=== PATIENT | male | born 1955 | race African-American/Black ===

== ENCOUNTER 2024-04-13 13:48 | Inpatient (IN) | payer MEDICARE, OTHER, SELFPAY ==
[2024-04-13] VITALS (69 sets, daily range): BP systolic 123–215; BP diastolic 70–140; BMI 30.5; BMI 29.8
--- NOTE | 2024-04-13 12:22 | CON.NEURO ---
Neuro Assessment/Plan
Assessment
IMPRESSIONS/RECOMMENDATIONS:
Abrupt change in speech, most likely secondary to acute ischemic stroke. Differential diagnosis includes hypertensive encephalopathy. This diagnosis is slightly less likely based on improvement of the patient's blood pressure not improving the
patient's symptoms.
Plan
Recommendations:
� administer IV Tenecteplase (TNK) per protocol urgently while keeping patient's blood pressure to a goal of systolic less than 185 and diastolic less than 110 mmHg during infusion of TNK
� place the patient in medical ICU
� goal blood pressure over the next 24 hours would be less than 180/105 mmHg
� check MRI of the brain within 22-32 hours of TNK without contrast for localization of the stroke
� hold all antiplatelets, OAC meds, DOAC meds, heparinoids for next 24 hours
� check lipid panel and hemoglobin A1c
� start atorvastatin 80 mg at bedtime when patient is able to take PO, if LDL is greater than 70
� goal blood glucose levels for patient would be less than 180 mg/dL
� Speech, PT, OT evaluations needed
� DVT prophylaxis with sequential compression devices over next 24 hours, can be started on Enoxaparin subcutaneous for DVT prophylaxis beginning 24 hours after TNK provision.
� medical educational materials will be provided
Total Critical Care Time= 60 minutes.
The neurological system is affected and the action required by me to prevent further deterioration or potential was control over the item listed first in the Impressions and Recommendations section of this note.
I was present and personally examined the patient. I discussed patient care with other professional health care providers.
We will follow. Thank you.
Consultation
Order
Date of Consultation: 04/13/24
Requesting Provider: Emergency department physician
Reason for Consult: Aphasia
Subjective/Objective
Subjective Data
Date of Service: April 13, 2024
Right-handed
Patient was in his usual state of health while at his place of latter-day when he had sudden onset of aphasia. Patient not had experience with this disorder in the past. There were no known modifying factors. Patient no additional symptomatology at
that time. He immediately presented to this hospital's emergency department for further evaluation and treatment.
Objective Data
Vital Signs
Pulse BP Pulse Ox
98 208/105 98
04/13/24 12:16 04/13/24 12:16 04/13/24 12:16
Patient Allergies
No Known Allergies Allergy (Unverified 04/13/24 12:20)
CVA Assessment
Onset of Stroke Symptoms
Onset of symptoms known: Yes
Date of onset of symptoms: 04/13/24
Time of onset of symptoms: 11:30
Time pt last seen normal is known: Yes
Date last time pt seen normal: 04/13/24
Time last time pt seen normal: 11:30
NIH Stroke Score
Level of Consciousness: 0 - Alert
LOC Questions: 0-Answers both correctly
LOC Commands: 0-Performs both correctly
Best Horizontal Gaze: 0-Normal
Visual Amaro: 0=Normal, no visual loss
Facial Palsy: 0=Normal, symmetrical
Motor - Right Arm: 0=No drift 10 seconds
Motor - Left Arm: 0=No drift 10 seconds
Motor - Right Le-No drift 5 seconds
Motor - Left Le-No drift 5 seconds
Limb Ataxia: 0-Absent
Sensation: 0-Normal
Best Language: 0-No aphasia
Dysarthria: 2-Severe slurring
Extinction and Inattention: 0-No abnormality
Total Score:: 2
Tenecteplase Contraindications
Inclusion and Exclusion criteria reviewed: Yes
IAT Contraindications: Imaging doesn't show large vessel occlusion as cause of stroke
Review of Systems
-
History Source: Patient
All other systems: Reviewed and negative
EENT: Negative Swallowing Difficulty
Respiratory: Negative Trouble Breathing
Cardiac: Negative Chest Pain
Musculoskeletal: Negative Back Pain or Neck Pain
Neuro: Negative Dizzy or Headache
Physical Exam
-
General: No Apparent Distress and Appears Stated Age
Eyes: OU Absent Papilledema, Round OU, Gillespie Conjunctivae and No Ptosis
HEENT: Anicteric and Moist Mucous Membranes
Neck: Full Range of Motion
Respiratory: No Dyspnea
Cardiac: No JVD
GI: Non-distended
Skin: Unremarkable
Extremities: No Clubbing, No Cyanosis and No Edema
Psych: Intact Judgement/Insight
Extended Neurological Exam
Mood & Affect: Mood Unremarkable and Affect Unremarkable
Attention Span & Concentration: Awake, Alert, Interactive and No Difficulty with 2 Step Request
Memory: Unremarkable
Tremor: Hand Tremor Absent and Head Tremor Absent
Speech: Quantity Unremarkable and Other (Thick)
Cranial Nerve II: Left Eye: Pupillary Reactivity Unremarkable, Pupillary Size Unremarkable and Visual Amaro Intact
Cranial Nerve II: Right Eye: Pupillary Reactivity Unremarkable, Pupillary Size Unremarkable and Visual Amaro Intact
Cranial Nerves III, IV, : Extraocular Movement: Extraocular Movement Full in all Directions
Cranial Nerve VII: Facial Symmetry: Normal Facial Symmetry
Cranial Nerve VIII: Hearing: Unremarkable Hearing to Normal Conversational Volume
Cranial Nerves IX, X: Palate Movement: Palate Elevation Symmetric
Cranial Nerve XI: Shoulder Shrug: Unremarkable
Cranial Nerve XII: Tongue Protusion: Midline
Muscle Strength, Overall: Full Throughout
Muscle Bulk & Tone: Bulk Unremarkable and Tone Unremarkable
Pronator Drift: No Drift in Upper Extremities
Deep Tendon Reflexes: Unremarkable Throughout
Touch Sensation: Unremarkable
Coordination: Rbnfoi-yjhq-bxggvr Testing Unremarkable
Babinski Sign: Absent Bilaterally
Data Reviewed
-
CT-A: Report Reviewed
CT Head: Report Reviewed
Labs: Ordered and Report Reviewed
Lipid Profile: Ordered
Reviewed with: Physician, Nurse and Patient
Old Records: Summarized
Medications
-
Home Medications
�Medication �Instructions �Recorded
No Meds [No Current Medications] 04/13/24
Past History
Past History
ED Past Medical History: HTN
ED Past Surgical History: None
Social History
Tobacco: Non-smoker
Alcohol: None
Family History
Family History: Other (reviewed and non-contributory)
[2024-04-13] MEDS: TRANDATE 10 MG IV ×4 (12:36→18:34)
[2024-04-13 12:39] LABS: Glucose - Point of Care 102 mg/dl (70-99)
[2024-04-13 12:49] LABS: % Basophils 0.7 % (0-2); % Eosinophils 1.8 % (0-6); % Immature Granulocytes 0.3 % (0-0.5); % Lymphocytes 28.3 % (20.5-51.1); % Neutrophils 55.9 % (42.2-75.2); Absolute Basophils 0.1 10^3/uL (0-0.2); Absolute Eosinophils 0.1 10^3/uL (0-0.7); Absolute Lymphocytes 1.9 10^3/uL (1.2-3.4); Absolute Monocytes 0.9 10^3/uL (0.1-0.6); Absolute Neutrophils 3.8 10^3/uL (1.4-6.5); Hematocrit 37.7 % (39.0-52.0); Hemoglobin 13.3 g/dL (13.0-18.0); Mean Corp Hgb Conc. 35.3 g/dL (33.0-37.0); Mean Corpuscular Hgb 31.9 pg (27.0-31.0); Mean Corpuscular Volume 90.4 fL (80.0-94.0); Mean Platelet Volume 9.6 fL (7.4-10.4); Nucleated Red Blood Cells % 0 % (-); Platelet Count 227 10^3/uL (130-400); Red Blood Cell Count 4.17 10^6/uL (4.70-6.10); Red Cell Dist. Width 13.6 % (11.5-14.5); White Blood Cell Count 6.8 10^3/uL (4.8-10.8)
[2024-04-13] MEDS: CARDENE 200 IV (12:59)
[2024-04-13] MEDS: TNKASE 4.6 MG IV (13:03)
[2024-04-13 13:04] LABS: INR 1.07; PT 13.7 Sec (11.4-14.6)
--- NOTE | 2024-04-13 13:12 | ED.CVA ---
History of Present Illness
General
Chief Complaint: CVA/TIA Symptoms
Time Seen by Provider: 04/13/24 12:12
Onset of Stroke Symptoms
Onset of symptoms known: Yes
Date of onset of symptoms: 04/13/24
History of Present Illness
History of Present Illness:
68-year-old male with history of hypertension, however untreated for the past 2 years, presenting to the emergency department for strokelike symptoms. Patient prehospital alert. Patient was working at his [employer]ism. 30 minutes prior to arrival, he
was noted to have difficulty speaking, slurred speech and aphasia by a fellow [employer] member. Dliyk-ba-bxzx glucose noted to be normal and route. On arrival, patient does have a speech deficit. Admits to not taking any blood pressure medication
for the past 2 years, hypertensive. Denies weakness or numbness to his extremities. Denies chest pain or difficulty breathing. Denies headache or visual changes. Denies additional acute medical complaints
Past History
Past History
ED Past Medical History: HTN
ED Past Surgical History: None
Social History
Tobacco: Non-smoker
Alcohol: None
Family History
Family History: Other (reviewed and non-contributory)
Phy Exam
Physical Exam
Physical Exam:
General: Well-appearing, no clinical signs of dehydration, nontoxic and in no acute distress
HEENT: protecting airway
Neck: appears supple
CV: Normal heart rate, regular rhythm, no evidence of cyanosis
Resp: No accessory muscle use, no increased work of breathing, lungs clear to auscultation bilaterally
Abd: Soft and non-distended, no tenderness to palpation, normal bowel sounds
Extremities: No deformities, no swelling, no erythema, pulses and sensation intact
Neuro: Slight expressive aphasia with slurring. Otherwise no focal neurologic deficits.
: deferred
Rectal: deferred
Psych: Normal affect
Skin: Intact
NIH Stroke Score
Level of Consciousness: 0 - Alert
LOC questions: 0-Answers both correctly
LOC Commands: 0-Performs both correctly
Best Gaze: 0-Normal
Visual Amaro: 0=Normal, no visual loss
Facial palsy: 0=Normal, symmetrical
Motor - Right Arm: 0=No drift 10 seconds
Motor - Left Arm: 0=No drift 10 seconds
Motor - Right Le-No drift 5 seconds
Motor - Left Le-No drift 5 seconds
Limb Ataxia: 0-Absent
Sensation: 0-Normal
Best Language: 1-Mild aphasia
Dysarthria: 1-Mild slurring
Extinction and Inattention: 0-No abnormality
Total Score:: 2
Course
Orders/Labs/Results
Orders:
Orders
04/13/24 12:12
CT Head W/o Cont STROKE ALERT Urgent
Comment:
Reason For Exam: expresive aphasia
Bedside Glucose- Treatment ONCE
04/13/24 12:13
Electrocardiogram (*1) Stat
Reason for Study: Other
Other Reason for Exam: neuro symptoms
EKG- Treatment ONCE
04/13/24 12:21
CT Head & Neck Angio W/wo IV Urgent
Comment:
Reason For Exam: stenosis
04/13/24 12:33
Labetalol HCl [Trandate] 5 mg IV NOW STA
04/13/24 12:36
Labetalol HCl [Trandate] 10 mg IV NOW STA
04/13/24 12:38
Type+Screen Urgent
Complete Blood Count/With Diff Urgent
Tenecteplase [Tnkase] 23 mg Syringe [Syringe Non-Pump] 0 ml IV NOW
Provider explained risk/benefits to patient &/or caregiver?: Yes
Blood pressure: 208/105
04/13/24 12:39
Basic Metabolic Panel Urgent
PTT Urgent
Prothrombin Time Urgent
Troponin I Q6H
04/13/24 12:42
Labetalol HCl [Trandate] 20 mg .ROUTE .STK-MED ONE
04/13/24 12:43
Labetalol HCl [Trandate] 10 mg IV NOW STA
04/13/24 12:48
Labetalol HCl [Trandate] 10 mg IV NOW STA
04/13/24 12:53
Nicardipine 40 mg/200 ml [Cardene] 40 mg in 200 ml .ROUTE .STK-MED
04/13/24 13:00
Nicardipine 40 mg/200 ml [Cardene] 40 mg in 200 ml IV PER PROTOCOL
Initial dose in mg/hr, then titrate:: 15
Titrate to keep:: BP < 180/105 mmHg
Titrate by mg/hr:: 2.5 mg/hr
Frequency of titrations (minutes):: 5-15 minutes
Maximum dose in mg/hr:: 15
Begin to taper infusion when:: Remained at goal for 2hrs
Taper by mg/hr:: 2.5 mg/hr
Frequency of taper (minutes) if patient maintains goal:: every 15-30 minutes
Taper to off?: Yes
If infusion off & no longer maintaining goal:: Contact Provider
04/13/24 13:03
Labetalol HCl [Trandate] See Dose Instructions .ROUTE .STK-MED ONE
04/13/24 13:05
NEUROLOGY CONSULT Urgent
Consulting Provider: Polo Cao
Was physician already notified: Yes
Reason for consult: stroke alert
04/13/24 13:10
Speech Therapy Eval & Treat Routine
Treatment: Aphasia
04/13/24 13:26
Admit Patient As Directed
Co-Sign Provider:
Level of Care: Inpatient admission
Assign to:: ICU
Physician / Group: Andrea Powell
Diagnosis: CVA s/p TNK
Reason for Hospitalization: CVA s/p TNK
Expected length of stay greater than two midnights?: Yes
ELOS- Estimated Length of Stay in days: 3
I certify the patient meets the requirements for IP care: Yes
04/13/24 13:27
Sequential Compression Device [Pneumatic Compression Sleeves] As Directed
Type: Knee high
DX Deep Vein Thrombosis Video Routine
04/13/24 13:36
Potassium Urgent
04/13/24 18:15
Troponin I Q6H
Abnormal Lab Results
04/13/24 04/13/24 04/13/24
12:37 12:38 12:39
RBC 4.17 L 10^6/uL
(4.70-6.10)
Hct 37.7 L %
(39.0-52.0)
MCH 31.9 H pg
(27.0-31.0)
Absolute Monos (auto) 0.9 H 10^3/uL
(0.1-0.6)
Monocytes % 13.0 H %
(1.7-9.3)
Sodium 133 L mmol/L
(135-145)
Glucose 100 H mg/dl
(70-99)
POC Glucose 102 H mg/dl
(70-99)
04/13/24 12:38
Vital Signs
Initial and Last Documented VS:
Initial Vital Signs
Pulse Resp BP
104 20 208/105
04/13/24 12:11 04/13/24 12:11 04/13/24 12:11
Last Documented Vital Signs
Pulse Resp BP Pulse Ox
82 19 152/87 93
04/13/24 14:45 04/13/24 14:45 04/13/24 14:36 04/13/24 14:30
MDM/Problems Addressed
MDM/Problems Addressed:
68-year-old male with history of untreated hypertension presenting as a prehospital stroke alert. Vital signs on arrival significant for hypertension.
Patient met in examination room upon arrival. Symptom onset approximately 30 minutes prior to arrival, witnessed by bystanders at his [employer]ism, thus within TPA window. NIH stroke scale is a 2 with slight aphasia and slurring of speech. Patient
subsequently sent to CT scan, met by neurology at bedside. Patient is markedly hypertensive with concern for hypertensive emergency and encephalopathy. Will require blood pressure control.
12:15 - patient to CT
12:25 -alerted by radiology that CT is negative
12:30 -in discussion with neurology, feel that tenecteplase would be warranted given patient's speech deficit. However, markedly hypertensive. Will work on blood pressure control.
13:15 -after multiple doses of labetalol, unsuccessful. Patient subsequently placed on nicardipine with subsequent improvement of blood pressure. Tenecteplase administered. ICU aware. Patient will go to ICU.
*Critical Care Note
Total Time (30-74mins, 75-104mins- exclusive of procedures): 60
comment:
Critical care statement: A total of 60 minutes of critical care time was provided for this patient. This includes management of unstable vital signs, evaluation of the patient at bedside, reviewing the patient's pertinent medical records, discussion
with consultants, review of old EKGs and review of pertinent medical records. This time with separate from time utilized to perform the aforementioned documented procedures
ED Attending Note
-
Portions of this chart may have been created with voice recognition software.� Occasional wrong word or��sound alike� substitutions may have occurred due to the inherent limitations of voice recognition software.
Discharge Plan
Departure
Patient Disposition: Admit
Date of Disposition: 04/13/24
Time of Disposition: 13:17
Presentation/result/management discussed w/ accepting MD/DO: Hospitalist
Patient with high blood pressure during this ER visit?: Yes
Discharge Problem:
Acute cerebrovascular accident (CVA), Hypertensive emergency
Interventions
Interventions:
*Risk Screen - Suicide Last Done: 04/13/24 14:14
*General Assessment Last Done: 04/13/24 13:13
*Neglect/Abuse Screening Last Done: 04/13/24 13:36
*ED COVID-19 Vaccine History Last Done: 04/13/24 12:53
*Nursing Disposition Last Done: 04/13/24 14:12
ED- Pulmonary Assessment Last Done: 04/13/24 13:28
ED- Neurological Assessment Last Done: 04/13/24 13:00
ED- Cardiac Assessment Last Done: 04/13/24 12:52
Discharge Date and Time
Discharge Date/Time: 04/13/24 14:15
[2024-04-13 13:16] LABS: Troponin I < 0.012 ng/ml
[2024-04-13 13:18] LABS: Blood Urea Nitrogen 14 mg/dl (9-20); Calcium 8.8 mg/dl (8.4-10.2); Carbon Dioxide 25 mmol/L (22-30); Chloride 103 mmol/L (98-107); Estimated Creatinine Clearance 77 ml/min; Glucose 100 mg/dl (70-99); Sodium 133 mmol/L (135-145); eGFR > 60.00
--- NOTE | 2024-04-13 13:30 | CON.INTV ---
Consultation
Consultation Request
Date/Time Consultation Requested: 04/13
Date/Time Consultation Performed: 04/13
Reason for Consultation: Critical care
Medical History
-
History of Present Illness:
History obtained from the patient, reviewing records and some history from cousin at the bedside. 68-year-old male with history of hypertension, does not regularly see a physician, presents with acute onset of slurred speech. 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 He was brought to [facility] where upon arrival, pulse 98, blood pressure 208/105, 98%. Patient had imaging which was unremarkable. Blood pressure
received labetalol and then started on Cardene drip with improvement in blood pressure. Patient was then given TNK around 1:15 PM. During my assessment, patient was able to speak with occasional mixing up her words. Otherwise neurological exam
nonfocal. NIH score 2 per records. During my evaluation, systolic pressure was 160s
Patient denies any recent falls although he tripped and injured his knee 3 to 4 months ago. Denies any head trauma, chest pain, shortness of breath, nausea, blood in urine or stool, dark black stool, bleeding issues. Unfortunately does not see a
physician regularly but has known hypertension.
Patient denies any headaches or vision changes, nausea
.
PMH: Hypertension
Past Medical History
Past Medical History: None (See above)
Past Surgical History: None (See above)
Social History
Tobacco: Non-smoker
Alcohol: Occasional (Few shots a week)
Drug: None
Employment: Not Employed
Family History
Family History: Other (3 stepchildren healthy. Family history negative for blood clots, lung cancer)
Allergies / Home Medications
Allergies
Allergy/AdvReac Type Severity Reaction Status Date / Time
No Known Allergies Allergy Unverified 04/13/24 12:20
Home Medications
�Medication �Instructions �Recorded �Confirmed �Last Taken �Type
No Meds [No Current Medications] 04/13/24 04/13/24 Unknown History
Review of Systems
-
All other systems: Negative unless noted
Vitals / Labs / Diagnostic Testing
Vital Signs
Pulse Resp BP Pulse Ox
85 16 159/85 96
04/13/24 13:21 04/13/24 13:21 04/13/24 13:06 04/13/24 13:28
Lab Data
04/13/24 12:38
Laboratory Results
04/13/24
12:39
PT 13.7
INR 1.07
APTT 34.0
Diagnostic Testing:
Physical Exam
-
HEENT: Normocephalic, Anicteric and Other (Proptosis, pupils reactive)
Cardiovascular: S1/S2, Regular Rhythm, Murmur (n), Rub (n) and Peripheral Edema (n)
Respiratory: Wheeze (n), Rales (n), Rhonchi (n) and Non-Labored Respirations
GI: Soft, Non Distended and Non Tender
Neurology: Awake, Alert and No Motor Deficits (Moves all extremities, cranial nerves grossly intact. Mild slurred speech)
Skin: Other (No obvious rash)
General: Comfortable
Assessment
-
68-year-old male with history of hypertension, does not see a physician, presents with acute onset slurred speech at around 11:30 AM. Imaging negative. Patient was given TNK at approximately 1:15 PM. Patient did require labetalol and Cardene to
bring the systolic pressure down to 160s. Patient being admitted to ICU for further management
Acute CVA
Mild aphasia, NIH 2
s/p TNK at approx 115p
Hypertension, poorly controlled
Improved with labetalol/Cardene drip
Hypertensive emergency
Mild hyponatremia
Abnormal EKG
Proptosis, on exam
Plan/recommendations
At this time, patient is without complaints
Reviewed imaging, no acute findings per report
Patient received TNK at approximately 1:15 PM
Presently, cranial nerve grossly intact, neurological exam intact
Patient denies headaches, nausea, double vision
Mild slurred speech noted
Moving forward
Continue to follow with neurochecks
Maintain Cardene, systolic pressure 140-180
Did not seem to respond to labetalol
Patient apparently with history of hypertension, has not taken medications for many years
Coagulation studies normal
Abnormal EKG noted, inferior Q-wave and poor R wave progression
Patient denies any prior cardiac disease
Denies any chest pain, shortness of breath
Chest x-ray upon arrival to the ICU
Reviewed with patient, family at bedside, ED staff
Reviewed with neurology
Will follow
TCCT 31 min
--- NOTE | 2024-04-13 13:54 | HPS.HSE ---
Family Physician
-
Family Physician: NOT KNOW UNKNOWN - PT DOES
Chief Complaint
-
Difficulty with speech
History of Present Illness
68-year-old man with history of untreated hypertension, comes in with speech difficulty as a prehospital stroke alert. he went to CT, got TKN, then is now going to ICU. He was working at his [employer]. 30 minutes prior to arrival, he was noted to
have difficulty speaking, with slurred speech and aphasia. The Qroar-li-dmsw glucose was normal. In the ED, he had a speech deficit. He denied weakness or numbness to his extremities, chest pain or difficulty breathing, headache or visual
changes. He denied additional other acute medical complaints. He could answer my questions with yes, and no, but had difficulty with more complex questions.
Medical History
Past Medical History
Past Medical History: Reports HTN
Past Surgical History: Reports None
Social History
Unable to obtain full social history at this time due to: Acuity
Family History
Family History: Not pertinent
Allergies / Home Medications
Allergies reflects when Allergies were last updated in [facility].
Home Medications with original date entered in [facility]
Allergy/Medication List:
Allergies
Allergy/AdvReac Type Severity Reaction Status Date / Time
No Known Allergies Allergy Unverified 04/13/24 12:20
Home Medications
No Meds [No Current Medications] 04/13/24
Review of Systems
-
Unable to obtain full review of systems at this time due to: Acuity
Physical Exam
Vital Signs
Vital Signs
Pulse Resp BP Pulse Ox
81 94 156/140 95
04/13/24 13:36 04/13/24 13:36 04/13/24 13:30 04/13/24 13:30
Physical Exam
General: Well Developed, Well Nourished, No Apparent Distress, Comfortable and Obese; No Conversant
HEENT: NormoCephalic, Anicteric, Moist mucous membranes, Atraumatic, No Ptosis, Nose Appears Normal and Ears Appear Normal
Respiratory: Clear
Cardiac: S1/S2 and Regular Rhythm
GI: Soft, Non Tender and Non Distended
Musculoskeletal: No Clubbing, No Cyanosis and No Edema
Skin: Warm and Dry; No Rash or Jaundice
Neuro: Awake and Alert
Psych: Calm
Laboratory Results
-
04/13/24 12:38
Laboratory Results
PT 13.7 Sec (11.4-14.6) 04/13/24 12:39
INR 1.07 04/13/24 12:39
APTT 34.0 Sec (23.4-35.0) 04/13/24 12:39
Total Bilirubin Cancelled 04/13/24 12:39
AST Cancelled 04/13/24 12:39
ALT Cancelled 04/13/24 12:39
Alkaline Phosphatase Cancelled 04/13/24 12:39
Troponin I < 0.012 ng/ml 04/13/24 12:39
Data Reviewed
-
Lab Data: Labs Reviewed by me
Impression/Plan
-
IMPRESSION:
68 man with uncontrolled BP, initially 208/105, 156-130 at the time of my interview, who likely had a stroke, received TNK, and is now going to the ICU.
PLAN:
1. Probable stroke, s/p TNK - follow stroke protocol - admit to ICU
Neuro consult
BP control
MRI
Carotic check
Check cholesterol
Check troponins
Check A1c
PT consutl
Physiatry consult
2. Uncontrolled BP - not on current meds
treat with IV BP meds as needed
establish target BP for the next few days with neurology
Will need outpt oral BP treament
Full code
VCD for DVTp
--- NOTE | 2024-04-13 14:47 | PTCARENOTE ---
Pt received from ED RN into room 3363. NIHSS completed with ED RN. Pt scored a 1 for mild slurring which seems to be improving already. Pt does have a possible physical barrier to clear speech, he states he wears a full upper set of dentures that
get loose and can cause him to have a lisp. Pt is Ox3 and cooperative. PERRLA 3mm, MCLEOD, outgoing and very friendly. NSR on tele, no edema, KH SCDs in place. Breath sounds clear, 93% on RA, pt denies any shortness of breath. Round ABD, scars from
prior hernia surgeries, hypoactive bowels. Pt using urinal frequently, passing clear yellow urine. Skin intact. IV sites intact. Pt maintains on bleeding precautions.
--- NOTE | 2024-04-13 15:18 | CM ---
CM following re: discharge planning.
Reviewed pt's chart, met with pt. pt's cousin and pt's friend at bedside.
Pt is a 68 year old male, admitted with primary dx of CVA.
Pt reports he lives with spouse in a [place] in [place], has 3 supportive stepchildren, supportive friends. 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 No DME, VN or SNF history.
PT, OT, ST will evaluate the pt do determine a level of care at discharge.
PCP: pt stated he has been going to a public clinic
Pharmacy: pt stated he did not use any medications prior to this admission, preferred [facility] in [facility].
D/C plan: Will be determined after PT/OT/S evaluations.
CM will follow with discharge plan updates as hospitalization progresses
--- NOTE | 2024-04-13 17:14 | PTCARENOTE ---
Pt reassessed. NIHSS now down to 0, pt no longer slurring speech. q30M checks continue. Pt now resting comfortably.
[2024-04-13 18:06] LABS: Potassium 4.3 mmol/L (3.5-5.1)
[2024-04-13 19:16] LABS: Troponin I 0.023 ng/ml
[2024-04-13] MEDS: COLACE 100 MG PO (19:59)
--- NOTE | 2024-04-13 20:00 | PTCARENOTE ---
Received pt resting in bed. NIH handoff with dayshift RN completed. NIH = 0. Pt. without complaints. Q30min neuro checks ongoing. NSR on tele, HR 80s. Hypertensive 180s/110s at change of shift- cardene gtt restarted at 2.5mg/hr. No edema, + pulses,
afebrile. On RA, lungs CTA. Round abd. + bowel sounds. Pt reports some constipation- colace given. Voiding clear yellow in urinal. R AC and L H PIVs patent. Call diaz in reach. Pt. did not wish to eat any dinner. Monitoring
[2024-04-13] MEDS: LIPITOR 40 MG PO (23:05)
[2024-04-14] VITALS (39 sets, daily range): BP systolic 116–184; BP diastolic 81–118; PULSE 90–92; BMI 29.6
--- NOTE | 2024-04-14 | PTCARENOTE ---
Neuro checks ongoing and unchanged. Pt. without complaints. Juanjo gtt off since 2149.
[2024-04-14 04:09] LABS: Hematocrit 41.3 % (39.0-52.0); Hemoglobin 14.5 g/dL (13.0-18.0); Mean Corp Hgb Conc. 35.1 g/dL (33.0-37.0); Mean Corpuscular Hgb 31.6 pg (27.0-31.0); Mean Platelet Volume 9.7 fL (7.4-10.4); Platelet Count 233 10^3/uL (130-400); Red Blood Cell Count 4.59 10^6/uL (4.70-6.10); Red Cell Dist. Width 13.5 % (11.5-14.5); White Blood Cell Count 6.8 10^3/uL (4.8-10.8)
[2024-04-14 04:17] LABS: INR 1.05; PT 13.7 Sec (11.4-14.6)
[2024-04-14 04:18] LABS: APTT 33.7 Sec (23.4-35.0)
[2024-04-14 04:33] LABS: Blood Urea Nitrogen 13 mg/dl (9-20); Calcium 9.8 mg/dl (8.4-10.2); Carbon Dioxide 22 mmol/L (22-30); Chloride 106 mmol/L (98-107); Estimated Creatinine Clearance 62 ml/min; Glucose 115 mg/dl (70-99); HDL Cholesterol 59 mg/dl; LDL Cholesterol, Calculated 192 mg/dl; Potassium 4.2 mmol/L (3.5-5.1); Sodium 137 mmol/L (135-145); Total Cholesterol 266 mg/dl (50-199); Triglyceride 76 mg/dl (10-149); Very Low Density Lipoprotein 15 mg/dl (0-30); eGFR > 60.00
[2024-04-14 04:42] LABS: Troponin I < 0.012 ng/ml
--- NOTE | 2024-04-14 04:45 | PTCARENOTE ---
AM labs drawn. No changes in assessment. Pt sleeping on and off.
[2024-04-14 05:02] LABS: TSH Reflex To Free T4 3.88 uIU/ml (0.47-4.68)
--- NOTE | 2024-04-14 07:06 | W.PN.INTV ---
Today's Communication / Plan
Recommendations
Continue to follow blood pressure
Await repeat imaging later today
Antiplatelet therapy per neurology (aspirin/Plavix)
Okay for transfer out of ICU pending repeat imaging. We will sign off once transferred
Assessment
-
68-year-old male with history of hypertension, does not see a physician, presents with acute onset slurred speech at around 11:30 AM. Imaging negative. Patient was given TNK at approximately 1:15 PM. Patient did require labetalol and Cardene to
bring the systolic pressure down to 160s. Patient being admitted to ICU for further management
Acute CVA
Mild aphasia, NIH 2
s/p TNK at approx 115p
Hypertension, poorly controlled
Improved with labetalol/Cardene drip
Hypertensive emergency
Mild hyponatremia
Abnormal EKG
Proptosis, on exam
Plan/recommendations
At this time, patient is without complaints
Reviewed imaging, no acute findings per report
Patient received TNK at approximately 1:15 PM on 04/13
Presently, cranial nerve grossly intact, neurological exam intact
Speech is normal
Patient denies headaches, nausea, double vision
Moving forward
Continue to follow with neurochecks
Await repeat imaging
Antiplatelet therapy, statin therapy as indicated post repeat imaging, as clinically indicated
Off Cardene at this time. Target systolic pressure 140-180
Did not seem to respond to labetalol
Patient apparently with history of hypertension, has not taken medications for many years
Discussed importance of dietary modification, behavioral changes and compliance with medical follow-up
Coagulation studies normal
Abnormal EKG noted, inferior Q-wave and poor R wave progression
Patient denies any prior cardiac disease
Denies any chest pain, shortness of breath
Chest x-ray without acute findings per my review
Reviewed with patient, family at bedside, critical care nursing
Reviewed with neurology
Okay for transfer out of ICU once follow-up imaging later today is stable
Subjective Dataa
Subjective Data
Date of Service:
Date of Service: April 14, 2024
Subjective:
Patient is feeling well. He has no complaints. Denies chest pain, nausea, abdominal pain, shortness of breath, headaches, vision changes, muscle weakness. No problems with speech
Objective Data
Data Reviewed
Vital Signs / I&O / Oxygen:
Vital Signs
Temp Pulse Resp BP Pulse Ox
98.1 F 72 19 171/97 96
04/14/24 03:08 04/14/24 06:30 04/14/24 06:30 04/14/24 06:30 04/14/24 06:30
Intake and Output
04/13/24 04/14/24 04/15/24
06:59 06:59 06:59
Intake Total 505.0 / 505.0
Output Total 1300 / 1300
Balance -795.0 / -795.0
SaO2 96
Physical Exam
General: Comfortable
HEENT: Normocephalic and Anicteric
Cardiovascular: S1-S2, Regular Rhythm, Murmur (n), Rub (n) and Peripheral Edema (n)
Respiratory: Wheeze (n), Crackles (n), Rhonchi (n) and Non-Labored Respirations
GI: Soft, Non Distended and Non Tender
Neurology: Awake, Alert and No Motor Deficits (Cranial nerves intact. Speech adequate)
Skin: Cyanosis (n), Rash (n) and Bruising (n)
Labs/Micro/Reports
Lab Data
04/14/24 04:00
04/14/24 04:00
Laboratory Results
04/13/24 04/14/24
12:39 04:00
PT 13.7 13.7
INR 1.07 1.05
APTT 34.0 33.7
--- NOTE | 2024-04-14 08:47 | PTCARENOTE ---
pt received from previous rn- aox3, room air, able to make needs known. nih of 0, no complaints at this time. all safety precautions in place, education provided, verbalized understanding.call diaz within reach
--- NOTE | 2024-04-14 09:38 | W.PN.NEURO.1 ---
Today's Communication / Plan
-
goal blood pressure beginning 24 hours after tenecteplase is normotension
check MRI of the brain within 22-32 hours of TNK without contrast for localization of the stroke
start atorvastatin 80 mg at bedtime
Neuro Assessment/Plan
Assessment
IMPRESSIONS/RECOMMENDATIONS:
Abrupt change in speech, most likely secondary to acute ischemic stroke. Differential diagnosis includes hypertensive encephalopathy. This diagnosis is slightly less likely based on improvement of the patient's blood pressure not improving the
patient's symptoms.
Patient received tenecteplase successfully with improvement
Plan
Recommendations:
goal blood pressure beginning 24 hours after tenecteplase is normotension
check MRI of the brain within 22-32 hours of TNK without contrast for localization of the stroke
hold all antiplatelets, OAC meds, DOAC meds, heparinoids until 24 hours after tenecteplase
start atorvastatin 80 mg at bedtime
goal blood glucose levels for patient would be less than 180 mg/dL
Speech therapy evaluations
We will follow pending results. Thank you
Subjective/Objective
Subjective Data
Date of Service: April 14, 2024
Returned to normal speech since 2 hours after TNK.
Objective Data
Vital Signs
Temp Pulse Resp BP Pulse Ox
36.9 C 72 18 159/92 95
04/14/24 08:03 04/14/24 09:00 04/14/24 09:00 04/14/24 09:00 04/14/24 08:15
Lab Results
04/14/24 04:00
04/14/24 04:00
PT 13.7 Sec (11.4-14.6) 04/14/24 04:00
INR 1.05 04/14/24 04:00
APTT 33.7 Sec (23.4-35.0) 04/14/24 04:00
Sodium 137 mmol/L (135-145) 04/14/24 04:00
Potassium 4.2 mmol/L (3.5-5.1) 04/14/24 04:00
BUN 13 mg/dl (9-20) 04/14/24 04:00
Glucose 115 mg/dl (70-99) H 04/14/24 04:00
Calcium 9.8 mg/dl (8.4-10.2) 04/14/24 04:00
LDL Cholesterol, Calc 192 mg/dl 04/14/24 04:00
Patient Allergies
No Known Allergies Allergy (Unverified 04/13/24 12:20)
Review of Systems
-
History Source: Patient
All other systems: Reviewed and negative
EENT: Negative Blurry Vision or Swallowing Difficulty
Respiratory: Negative Trouble Breathing
Cardiac: Negative Chest Pain
Abdomen/GI: Negative Incontinence of Stool
Genitourinary: Negative Incontinence
Musculoskeletal: Negative NSAID Use or Back Pain
Neuro: Negative Dizzy or Headache
Physical Exam
-
General: No Apparent Distress and Appears Stated Age
Eyes: Round OU, Start Conjunctivae and No Ptosis
HEENT: Anicteric and Moist Mucous Membranes
Neck: Full Range of Motion
Respiratory: No Dyspnea
Cardiac: No JVD
GI: Non-distended
Skin: Unremarkable
Extremities: No Clubbing, No Cyanosis and No Edema
Psych: Intact Judgement/Insight
Extended Neurological Exam
Mood & Affect: Mood Unremarkable and Affect Unremarkable
Attention Span & Concentration: Awake, Alert, Interactive and No Difficulty with 2 Step Request
Memory: Unremarkable
Tremor: Hand Tremor Absent and Head Tremor Absent
Speech: Quality Unremarkable, Quantity Unremarkable and Other (No difficulty with repetition)
Cranial Nerve II: Left Eye: Pupillary Size Unremarkable and Visual Amaro Grossly Intact
Cranial Nerve II: Right Eye: Pupillary Size Unremarkable and Visual Amaro Grossly Intact
Cranial Nerves III, IV, : Extraocular Movement: Grossly Intact
Cranial Nerve VII: Facial Symmetry: Normal Facial Symmetry
Cranial Nerve VIII: Hearing: Unremarkable Hearing to Normal Conversational Volume
Cranial Nerve XI: Shoulder Shrug: Unremarkable
Muscle Bulk & Tone: Bulk Unremarkable and Tone Unremarkable
Pronator Drift: No Drift in Upper Extremities
Coordination: [id number]-[id number] Testing Unremarkable
Data Reviewed
-
CT Head: Report Reviewed
MRI Head: Pending
Labs: Report Reviewed
Reviewed with: Physician and Patient
Old Records: Summarized
Past History
Past History
ED Past Medical History: HTN
ED Past Surgical History: None
Social History
Tobacco: Non-smoker
Alcohol: None
Family History
Family History: Other (reviewed and non-contributory)
Medications
-
Medications:
Generic Name Dose Route Start Last Admin
Trade Name Freq PRN Reason Stop Dose Admin
Acetaminophen 650 mg 04/13/24 13:54
Acetaminophen 325 Mg Tablet PO 05/11/24 13:53
Q4HPRN PRN
SALAMANCA, mild pain, or temp >100.4F
Atorvastatin Calcium 40 mg 04/14/24 18:00
Atorvastatin (Lipitor) 40 Mg Tablet PO 05/12/24 17:59
QPM TRACY
Nicardipine/Sodium Chloride 40 mg in 200 mls @ 0 mls/hr 04/13/24 13:00 04/13/24 12:59
Cardene IV 200 mls
PER PROTOCOL TRACY Administration
Protocol
Per Protocol
Labetalol HCl 10 mg 04/13/24 13:54 04/13/24 18:34
Labetalol Hcl 5 Mg/1 Ml (20 Mg/4 Ml) Injection IV 05/11/24 13:53 10 mg
Q6HPRN PRN Administration
BP > 180/105 mmHg
--- NOTE | 2024-04-14 10:20 | PTOTSP ---
Speech Language Pathology
Pt seen for speech/language evaluations. Deferred swallow evaluation as pt passed RN dysphagia screen and denied any difficulty with meals. Pt with slight speech imprecision. Discussed with pt who reported this is baseline and secondary to
dentures. Language evaluated via the Quick Aphasia Battery (QAB), form 1. Overall score of 9.93 (WNL).
Further [employer] services not indicated. Please reconsult as warranted.
--- NOTE | 2024-04-14 11:26 | PTCARENOTE ---
dr. everett in to see patient- neuro assessment unchanged. ok per dr. everett to get pt oob. pt ambulating without difficulty, call diaz within reach- education provided- verbalized understanding.
--- NOTE | 2024-04-14 12:42 | PTCARENOTE ---
pt off floor for mri at 1220
--- NOTE | 2024-04-14 15:27 | W.PN.HOSP.TC ---
Today's Communication/Plan
-
start Diltiazem, check EKG, start Lipitor
transfer to tele
Assessment / Plan
Assessment / Plan
1. Probable stroke, s/p TNK - follow stroke protocol - admit to ICU
Neuro consult appreciated
BP control
BP currently 163/90. Pt was on Lisinopril in past, did not like medication. Will order low dose Diltiazem, recheck EKG in AM
MRI: 8 mm focus of restricted diffusion in the left thalamus consistent with a small acute infarct.
cholesterol 266/Trig 76/LDL 192/HDL 59
to start Lipitor
Check troponins
<0.012, 0.023, <0.012
Check A1c
PT consult
Physiatry consult
2. Uncontrolled BP - not on current meds, had stopped Rx in past
treat with IV BP meds as needed
start low dose Diltiazem and modify Tx based on BP
Will need outpt oral BP treatment
transfer OOICU to tele
Full code
VCD for DVTp
Anticipated Discharge: 24 - 48 hours
Subjective/Interval History
-
Date of Service: April 14, 2024
Feels well, does not notice any residual from acute episode, no speech impairment
Objective Data
-
Labs:
Laboratory Results
04/14/24
04:00
WBC 6.8
Hgb 14.5
Hct 41.3
Plt Count 233
PT 13.7
INR 1.05
APTT 33.7
Sodium 137
Potassium 4.2
Chloride 106
Carbon Dioxide 22
BUN 13
Creatinine 1.1
Glucose 115 H
Calcium 9.8
Vital Signs:
Vital Signs
Temp Pulse Resp BP Pulse Ox
97.9 F 91 23 163/90 93
04/14/24 11:47 04/14/24 14:36 04/14/24 14:36 04/14/24 14:36 04/14/24 12:00
I&O
04/13/24 04/14/24 04/15/24
06:59 06:59 06:59
Intake Total 505.0 / 505.0
Output Total 1300 / 1300 100 / 100
Balance -795.0 / -795.0 -100 / -100
Review of Systems
-
History Source: Patient, Family and Coordinated Provider
Constitutional: Reports No Symptoms; Denies Fever
EENT: Reports No Symptoms Reported
Respiratory: Reports No Symptoms
Cardiac: Reports No Symptoms
Abdomen/GI: Reports No Symptoms
Genitourinary: Reports No Symptoms
Musculoskeletal: Reports No Symptoms
Physical Exam
-
General: Well Developed, Well Nourished and No Apparent Distress
HEENT: Normocephalic, Atraumatic and Moist Mucous Membranes
Respiratory: Clear to Auscultation; Negative Wheezes, Rales or Rhonchi
Cardiac: Regular Rhythm and S1/S2
GI: Soft, Nontender and Nondistended
Musculoskeletal: No Clubbing, No Cyanosis and No Edema
Skin: Dry
Neuro: Awake, Alert, Oriented and No Motor Deficits
[2024-04-14] MEDS: CARDIZEM CD 180 MG PO (17:14)
[2024-04-14] MEDS: LIPITOR 80 MG PO (17:15)
--- NOTE | 2024-04-14 20:00 | PTCARENOTE ---
on assessment pt AAOx3, denies pain, neuro WNL and NIH 0 at change of shift, pt up in the chair at this time, RA and denies SOB, Regular diet, voids in bathroom, skin intact, call diaz in reach.
[2024-04-15] VITALS (7 sets, daily range): BP systolic 120–157; BP diastolic 76–91; BMI 29.0
[2024-04-15 04:59] LABS: Hematocrit 40.4 % (39.0-52.0); Mean Corp Hgb Conc. 34.7 g/dL (33.0-37.0); Mean Corpuscular Hgb 31.3 pg (27.0-31.0); Mean Corpuscular Volume 90.2 fL (80.0-94.0); Mean Platelet Volume 9.9 fL (7.4-10.4); Platelet Count 254 10^3/uL (130-400); Red Blood Cell Count 4.48 10^6/uL (4.70-6.10); Red Cell Dist. Width 13.5 % (11.5-14.5); White Blood Cell Count 7.7 10^3/uL (4.8-10.8)
[2024-04-15 05:20] LABS: Blood Urea Nitrogen 21 mg/dl (9-20); Calcium 9.4 mg/dl (8.4-10.2); Carbon Dioxide 25 mmol/L (22-30); Chloride 104 mmol/L (98-107); Estimated Creatinine Clearance 57 ml/min; Glucose 106 mg/dl (70-99); Potassium 4.6 mmol/L (3.5-5.1); Sodium 137 mmol/L (135-145); eGFR > 60.00
--- NOTE | 2024-04-15 06:33 | W.PN.HOSP.TC ---
Today's Communication/Plan
-
dc
Assessment / Plan
Assessment / Plan
#Acute toxic encephalopathy with abrupt change in his speech secondary to acute ischemic stroke, s/p (Tenecteplase) TNK - follow stroke protocol - admitted to ICU
Pt was on Lisinopril in past, did not like medication.
MRI: 8 mm focus of restricted diffusion in the left thalamus consistent with a small acute infarct.
cholesterol 266/Trig 76/LDL 192/HDL 59
Started on high-dose Lipitor 80 mg.
Patient was counseled regarding potential side effect of statin and antiplatelet therapy. He verbalized understand
Troponin remained negative and not consistent with acute coronary disease or myocardial injury
Patient was followed closely neurologist
PT/OT, no skilled needs
Speech evaluated the patient, no changes recommended
2. Hypertensive emergency.
Blood pressure is better controlled. No chest pain. EKG normal sinus rate
Would avoid Cardizem with high-dose statin to decrease chance of myositis
Will start the patient on nifedipine
Patient is counseled regarding compliance to blood pressure medications and he verbalized understanding
Hyponatremia, resolved
Full code
VCD for DVTp
Total discharge time spent to see the patient, examine the patient, review data and lab results, and discuss the discharge plan with patient, nurse around 65 minutes
Anticipated Discharge: Today
Subjective/Interval History
-
Date of Service: April 15, 2024
He feels back to normal, anxious to leave
Objective Data
-
Labs:
Laboratory Results
04/15/24
04:14
WBC 7.7
Hgb 14.0
Hct 40.4
Plt Count 254
Sodium 137
Potassium 4.6
Chloride 104
Carbon Dioxide 25
BUN 21 H
Creatinine 1.2
Glucose 106 H
Calcium 9.4
Vital Signs:
Vital Signs
Temp Pulse Resp BP Pulse Ox
97.9 F 67 25 153/83 97
04/15/24 04:03 04/15/24 05:30 04/15/24 05:30 04/15/24 04:06 04/15/24 04:15
I&O
04/13/24 04/14/24 04/15/24
06:59 06:59 06:59
Intake Total 505.0 / 505.0
Output Total 1300 / 1300 475 / 475
Balance -795.0 / -795.0 -475 / -475
--- NOTE | 2024-04-15 07:30 | PTCARENOTE ---
Assumed care of patient. NIHSS 0. No deficits noted. Assessment completed. VS documented. Ate breakfast w/o issues. Scheduled for echo this am. Call diaz within reach. Safe environment established.
[2024-04-15] MEDS: PROCARDIA XL (EXTENDED RELEASE) 60 MG PO (08:34)
[2024-04-15] MEDS: LOW STRENGTH ASPIRIN 81 MG PO (08:34)
[2024-04-15 09:56] LABS: Glycohemoglobin (HgbA1c) 6.1 % (4.0-5.6)
--- NOTE | 2024-04-15 10:32 | W.PN.NEURO.1 ---
Documented by User: Angeles Levy NP 04/15/24 11:04
Today's Communication / Plan
-
.
Neuro Assessment/Plan
Assessment
This is a 68-year-old right-handed male with a PMH of untreated hypertension who presented to on 04/13/24 with report of acute onset severe dysarthria while at a [employer]oro[employer] event at 1130. Blood pressure on arrival in the ER was 208/105. NIHSS was [address] head and CTA head/neck were obtained and were negative for any acute abnormalities. Patient received IV TNK per protocol on 04/13/24 around 1315. Speech significantly improved in the two hours following TNK administration.
-MRI brain 04/14/24: Small acute infarct in the left thalamus.
I. Acute small ischemic left thalamic stroke s/p TNK on 04/13/24 around 1315; etiology likely hypertension.
II. Hypertensive urgency.
III. Hyperlipidemia.
IV. Prediabetes.
Plan
-Continue aspirin 81mg daily indefinitely.
-Goal normotension as it is greater than 24 hours from TNK administration.
-TTE pending.
-LDL goal <70. LDL is 192. Continue newly initiated atorvastatin 80mg daily.
-Goal normoglycemia, hbA1c is 6.1.
-PT/OT/ST evaluations.
-NIHSS and neurological checks per unit guidelines.
-Provide patient with a stroke education packet.
-DVT prophylaxis.
-Will follow as-needed. Patient should follow up with Neurology as an outpatient at least once, may do this closer to home in [place].
Subjective/Objective
Subjective Data
Date of Service: April 15, 2024
No acute events overnight. Patient reports feeling at his baseline. He denies any headache, dizziness, vision changes, speech/swallow difficulty, numbness, weakness, chest pain, palpitations, and shortness of breath.
Objective Data
Vital Signs
Temp Pulse Resp BP Pulse Ox
97.7 F 89 22 157/91 97
04/15/24 07:08 04/15/24 08:34 04/15/24 08:28 04/15/24 08:34 04/15/24 04:15
Lab Results
04/15/24 04:14
04/15/24 04:14
PT 13.7 Sec (11.4-14.6) 04/14/24 04:00
INR 1.05 04/14/24 04:00
APTT 33.7 Sec (23.4-35.0) 04/14/24 04:00
Sodium 137 mmol/L (135-145) 04/15/24 04:14
Potassium 4.6 mmol/L (3.5-5.1) 04/15/24 04:14
BUN 21 mg/dl (9-20) H 04/15/24 04:14
Glucose 106 mg/dl (70-99) H 04/15/24 04:14
Calcium 9.4 mg/dl (8.4-10.2) 04/15/24 04:14
LDL Cholesterol, Calc 192 mg/dl 04/14/24 04:00
Patient Allergies
No Known Allergies Allergy (Unverified 04/13/24 12:20)
LDL Level: >70, statin ordered
Review of Systems
-
History Source: Patient
EENT: Negative Blurry Vision, Decreased Vision or Swallowing Difficulty
Respiratory: Negative Cough or Trouble Breathing
Cardiac: Negative Chest Pain or Palpitations
Abdomen/GI: Negative Nausea
Genitourinary: Negative Difficulty Voiding
Neuro: Negative Dizzy, Headache, Weakness, Numbness, Ataxia, Tremors or Speech Problem
Physical Exam
-
General: Well Developed, Well Nourished and No Apparent Distress
Eyes: No Ptosis and PERRLA
HEENT: Normocephalic and Atraumatic
Neck: Full Range of Motion
Respiratory: No Dyspnea
GI: Non-distended
Extremities: No Clubbing, No Cyanosis and No Edema
Psych: Unremarkable
Extended Neurological Exam
Mood & Affect: Mood Unremarkable and Affect Unremarkable
Attention Span & Concentration: Awake, Alert and Interactive
Memory: Unremarkable (AAOx3) and Able to Recall
Tremor: Hand Tremor Absent and Head Tremor Absent
Involuntary Movement: None
Speech: Quality Unremarkable, Quantity Unremarkable and Rate of Production Unremarkable
Cranial Nerve II: Left Eye: Pupillary Reactivity Unremarkable, Pupillary Size Unremarkable and Visual Amaro Intact
Cranial Nerve II: Right Eye: Pupillary Reactivity Unremarkable, Pupillary Size Unremarkable and Visual Amaro Intact
Cranial Nerves III, IV, : Extraocular Movement: Extraocular Movement Full in all Directions
Cranial Nerve V: Facial Sensation: Intact to Light Touch
Cranial Nerve VII: Facial Symmetry: Normal Facial Symmetry
Cranial Nerve VIII: Hearing: Unremarkable Hearing to Normal Conversational Volume
Cranial Nerves IX, X: Palate Movement: Palate Elevation Symmetric
Cranial Nerve XI: Shoulder Shrug: Unremarkable
Cranial Nerve XII: Tongue Protusion: Midline
Muscle Strength, Overall: Full Throughout
Muscle Bulk & Tone: Bulk Unremarkable and Tone Unremarkable
Pronator Drift: No Drift in Upper Extremities and No Drift in Lower Extremities
Touch Sensation: Double Simultaneous Stimulation Unremarkable
Coordination: Imvoiz-excq-wrnsuk Testing Unremarkable
Modified Cum[place] Score (MRS)
-
Modified [place] Scale (mRS): No symptoms
Score: 0
Data Reviewed
-
CT-A: Report Reviewed and Image Reviewed
CT Head: Report Reviewed and Image Reviewed
MRI Head: Report Reviewed and Image Reviewed
Labs: Report Reviewed
Lipid Profile: Report Reviewed
HgbA1C: Report Reviewed
Reviewed with: Physician and Patient
Medications
-
Active Medications
Generic Name Dose Route Start Last Admin
Trade Name Freq PRN Reason Stop Dose Admin
Acetaminophen 650 mg 04/13/24 13:54
Acetaminophen 325 Mg Tablet PO 05/11/24 13:53
Q4HPRN PRN
SALAMANCA, mild pain, or temp >100.4F
Aspirin 81 mg 04/15/24 08:00 04/15/24 08:34
Aspirin 81 Mg Chewable Tablet PO 05/13/24 07:59 81 mg
DAILY TRACY Administration
Atorvastatin Calcium 80 mg 04/14/24 18:00 04/14/24 17:15
Atorvastatin (Lipitor) 80 Mg Tablet PO 05/12/24 17:59 80 mg
QPM TRACY Administration
Nifedipine 60 mg 04/15/24 08:00 04/15/24 08:34
Nifedipine 60 Mg Extended Release Tablet PO 05/13/24 07:59 60 mg
DAILY TRACY Administration
Sodium Chloride 0 flush 04/15/24 07:00
Sodium Chloride 0.9% (Flush) Syringe IV 05/13/24 06:59
PER PROTOCOL TRACY
Home Medications
�Medication �Instructions �Recorded
No Meds [No Current Medications] 04/13/24
NIH Stroke Score
Subsequent NIH Scale
Date of Subsequent NIH Scale: 04/15/24
Time of Subsequent NIH Scale: 10:00
NIH Stroke Score
Level of Consciousness: 0 - Alert
LOC Questions: 0-Answers both correctly
LOC Commands: 0-Performs both correctly
Best Horizontal Gaze: 0-Normal
Visual Amaro: 0=Normal, no visual loss
Facial Palsy: 0=Normal, symmetrical
Motor - Right Arm: 0=No drift 10 seconds
Motor - Left Arm: 0=No drift 10 seconds
Motor - Right Le-No drift 5 seconds
Motor - Left Le-No drift 5 seconds
Limb Ataxia: 0-Absent
Sensation: 0-Normal
Best Language: 0-No aphasia
Dysarthria: 0-Normal
Extinction and Inattention: 0-No abnormality
Total Score:: 0
Modified [place] (mRS) Score
Modified [place] Scale (mRS): No symptoms
Score: 0

Documented by User: Chencho Murrieta MD 04/15/24 14:20
Modified Michelle Score (MRS)
-
Score: 0
NIH Stroke Score
NIH Stroke Score
Total Score:: 0
Modified [place] (mRS) Score
Score: 0
--- NOTE | 2024-04-15 11:07 | W.DCSUMMARY ---
Discharge Summary
Discharge Data
Date of Admission: 04/13/24
Date of Discharge: 04/15/24
-
Pending Results: No
Hospital Course
68 years old male who presented with acute onsets of severe dysarthria with some confusion. Patient had history of hypertension and he was not taking his medications. Patient was not following with his primary care doctor. Upon arrival to the
emergency room. Blood pressure was 208/105. NIHSS was 2 for severe dysarthria. Scan of the head with angiogram of the head and the neck were obtained and were negative for any acute abnormalities. Patient received Tenecteplase (TNK) protocol.
Speech significantly improved following the administration. Patient was admitted to the intensive care unit for stroke protocol and hypertensive emergency. He received blood pressure medication. His blood pressure started to improve slowly and
patient felt he was back to normal. Magnetic resonance imaging of the brain showed a small acute infarct in the left thalamus. Physical therapy/Occupational Therapy/speech therapy evaluated the patient with no needs found. Patient was started on
high-dose statin with LDL around 192. Hemoglobin A1c 6.1. He was also counseled regarding compliance with his medications, prediabetes status and he verbalized understanding. He was started on nifedipine with good response. Patient denies chest
pain or anginal symptoms. He did not have headache or blurred vision. He was able to ambulate and he tolerated diet well. Echocardiogram showed normal left ventricular size and function with no significant valvular heart disease. Patient was
counseled regarding potential side effects of his medications, especially aspirin and statin therapy with his . They both verbalized understanding. Patient remained hemodynamically stable and was discharged in a stable condition.
Discharge Plan
-
Patient Disposition: Home (Routine Discharge)
Discharge Diagnosis/Procedures:
Acute ischemic infarct in the left thalamus
Hypertensive emergency
Prediabetes
You were evaluated by intensive care doctor and neurologist. You will need to follow with your primary care doctor in 1-2 weeks and neurologist in one month. Attached, contact information for our neurology group if needed.
Monitor your blood pressure twice a day and keep diary to share it with your primary care doctor
-You were started on new medications as follows
Aspirin, antiplatelet, potential side effects include: bruising, gastric irritation
Nifedipine, blood pressure medication, calcium channel pal, potential side effect includes hypotension
Lipitor, statin, cholesterol-lowering agent, potential side effects include myositis, muscle pain, tendinitis, elevated liver enzymes
Diet: Low Fat, Low Sodium and Diabetic, Carb Controlled
Referrals:
UNKNOWN - PT DOES,NOT KNOW [Family Provider] -
Polo Cao MD [Active] -
Prescriptions:
New
atorvastatin 80 mg Tablet
80 mg PO QPM Qty: 30 0RF
aspirin 81 mg Tablet,Chewable
81 mg PO DAILY Qty: 30 0RF
nifedipine 60 mg Tablet Extended Release
60 mg PO DAILY Qty: 30 0RF
Discharge Orders:
Discharge Patient (As Directed); Ordered 04/15/24
Ordered By: Shirley Grider
Discharge Date and Time
Print Language: MONGOLIAN
--- NOTE | 2024-04-15 12:01 | CM ---
CM following re: discharge planning.
Reviewed pt's chart, met with pt.
Pt stated he is aware he will be discharged home today, expressed his agreement with discharge and he stated his spouse will transport home. IMM reviewed, placed on chart, pt has a copy.
PT and OT evaluations noted - pt has no PT/OT skilled needs, independent with functional ability.
D/C plan: home with no needs. Spouse to transport.
--- NOTE | 2024-04-15 13:45 | PTCARENOTE ---
Discharge instructions reviewed at length by RN and with pt and pt's . Copies provided w/ scripts. Cardiac monitoring and IV sites removed. Belongings collected from room. To d/c home w/ . To be taken out by staff in
wheelchair.
== END 2024-04-15 14:00 | disposition home or self-care (01) | DRG 61 ==
LOC: ICU 13:48
PROVIDERS: Internal Medicine; Nurse Practitioner Primary Care; ADMITTING PHYSICIAN Internal Medicine; ATTENDING PHYSICIAN Internal Medicine; CONSULT PHYSICIAN Internal Medicine Critical Care Medicine; CONSULT PHYSICIAN Psychiatry & Neurology Neurology; EMERGENCY PHYSICIAN Student in an Organized Health Care Education/Training Program
PROC: 3E03317 Introduction of Other Thrombolytic into Peripheral Vein, Percutaneous Approach (ICD-10-PCS; 2024-04-13)
DX: I63.89 Other cerebral infarction (principal); G92.9 Unspecified toxic encephalopathy; E87.1 Hypo-osmolality and hyponatremia; I16.1 Hypertensive emergency; I10 Essential (primary) hypertension; R47.01 Aphasia; R47.1 Dysarthria and anarthria; R29.702 NIHSS score 2; R94.31 Abnormal electrocardiogram [ECG] [EKG]; H05.20 Unspecified exophthalmos; R73.03 Prediabetes; E78.5 Hyperlipidemia, unspecified; T46.5X6A Underdosing of other antihypertensive drugs, initial encounter; Z91.128 Patient's intentional underdosing of medication regimen for other reason
CPT/HCPCS: 70450; 70496; 70498; 70551; 71045; 80048; 80061; 82962; 83036; 84132; 84443; 84484; 85025; 85027; 85610; 85730; 86850; 86900; 86901; 92523; 93005; 93306; 96374; 96375; 97162; 97165; 99291; J3101; Q9967